=== PATIENT | female | born 1990 | race Caucasian/White ===

== ENCOUNTER 2016-08-17 13:03 | Emergency (ER) | payer OTHER ==
--- NOTE | ~2016-08-17 | CT2 ---
[facility] A Service of [facility] RADIOLOGY TEXT RESULTS PATIENT: KEVIN AGGARWAL LOCATION: SED : 86 UNIT #: [id number] AGE: [address]: Kamar Souza MD SEX: F ORDER DR: [id number] [address] [address] [id number] E MR#: [id number] Acc #: [id number] NAME: KEVIN AGGARWAL : 1990 SEX: F STUDY DATE/TIME: 08/17/2016 14:29 UNIT: SED ROOM: STUDY DESCRIPTION: CT Abd and Pelv W Cont Attending Physician: Kamar Souza M.D. Ordering Physician: Kamar Souza M.D. Primary Care Physician: Raleigh Beck MEDICAL IMAGING REPORT This report is preliminary unless electronic signature is present. EXAM CT scan of the abdomen and pelvis with contrast, 08/17/2016 HISTORY Vomiting and abdominal pain for [address] was performed through the abdomen and pelvis following intravenous contrast administration only as per clinician request. This CT exam was performed with one or more of the following radiation dose reduction techniques: automatic exposure control, adjustment of mA and/or kV according to patient size, and iterative reconstruction. FINDINGS ABDOMEN: The exam is limited by the lack of oral contrast. There is no prior exam for comparison. The liver, spleen, pancreas, gallbladder, biliary tree, adrenal glands and kidneys are normal. PELVIS FINDINGS: The gut, mesenteric and fred structures are normal. There is a 2.5 cm cyst on the right ovary which would be better evaluated with pelvic ultrasound if clinically indicated. There is a small amount of free fluid in the pelvis. The lung bases are normal. IMPRESSION 1. Exam is limited by the lack of oral contrast. 2. A 2.5 cm cystic lesion on the right ovary. This would be better evaluated with pelvic ultrasound if clinically indicated. Small amount of free fluid in the pelvis. [facility] A Service of [facility] RADIOLOGY TEXT RESULTS PATIENT: KEVIN AGGARWAL LOCATION: SED : 86 UNIT #: [id number] AGE: [address]: Kamar Souza MD SEX: F ORDER DR: Dictated by... Antwan Storey M.D. THIS IS AN ELECTRONICALLY VERIFIED REPORT Antwan Storey M.D. at 08/18/2016 10:49 AM MAGUI/ramya TD: 08/17/2016 22:20 JOB #: [id number] MEDICAL IMAGING REPORT
[2016-08-17 13:41] LABS: BASOPHIL# 0.1 X10e3 (0-0.3); BASOPHIL% 0.9 % (0-2.5); EOSINOPHIL# 0.2 X10e3 (0-0.7); EOSINOPHIL% 2.9 % (0.0-7.0); HEMATOCRIT 41.7 % (35.0-45.0); HEMOGLOBIN 13.9 gm/dL (12.0-16.0); LYMPHOCYTE# 1.8 X10e3 (1.0-3.5); MEAN CORPUSCULAR HGB CONC 33.3 g/dL (30-36); MEAN PLATELET VOLUME 8.3 FL (6.5-11.5); MONOCYTE# 0.4 X10e3 (0-1.0); MONOCYTE% 5.1 % (3.0-12.0); NEUTROPHIL# 5.3 X10e3 (1.5-7.1); NEUTROPHIL% 68.1 % (40-75); PLATELET COUNT 193 X10e3 (140-420); RED BLOOD COUNT 4.34 X10e (3.90-5.30); RED CELL DISTRIBUTION WIDTH 13.1 % (11.0-15.5); WHITE BLOOD COUNT 7.8 X10e3 (4.0-10.5)
[2016-08-17 13:42] LABS: DIFF IND NO
[2016-08-17 13:59] LABS: ALKALINE PHOSPHATASE 47 U/L (32-92); ALT (SGPT) 18 U/L (10-40); AMYLASE 24 U/L (0-46); AST (SGOT) 18 U/L (10-42); BILIRUBIN, DIRECT 0.1 mg/dL (0.0-0.2); BILIRUBIN,INDIRECT 0.5 mg/dL (0.0-0.9); BILIRUBIN,TOTAL 0.6 mg/dL (0.2-2.0); BLOOD UREA NITROGEN 14 mg/dL (9-23); CALCIUM SERUM 9.1 mg/dL (8.4-10.2); CARBON DIOXIDE 28 mmol/L (22-31); CHLORIDE 103 mmol/L (100-111); CREATININE SERUM 0.7 mg/dL (0.6-1.4); GLOM FILT RATE Estimated ABOVE60 mL/min (>60); GLUCOSE FASTING 92 mg/dL (70-110); LIPASE 39 U/L (22-51); POTASSIUM 4.2 mmol/L (3.5-5.1); SODIUM 139 mmol/L (135-145)
[2016-08-17 14:07] LABS: URINE SOURCE CLEAN CATCH
[2016-08-17 14:10] LABS: URINE APPEARANCE CLEAR; URINE BILIRUBIN NEG (NEG); URINE BLOOD TRACE-INTACT (NEG); URINE COLOR YELLOW; URINE GLUCOSE NEG (NORM); URINE KETONE NEG (NEG); URINE LEUKOCYTE ESTERASE NEG (NEG); URINE NITRATE NEG (NEG); URINE PROTEIN NEG (NEG); URINE UROBILINOGEN 0.2 MG/DL (NORM)
[2016-08-17 14:11] LABS: MICRO INDICATED? YES
[2016-08-17 14:21] LABS: CULTURE INDICATED? NO; URINE BACTERIA NEG (NEG); URINE MUCUS PRESENT; URINE RBC 0-2 /[HPF] (0-2); URINE SQUAMOUS EPITHELIAL CELL MODERATE /[HPF]; URINE WBC NEG /[HPF] (0-5)
== END 2016-08-17 15:53 | disposition home or self-care (01) ==
LOC: SED 13:03
PROVIDERS: Emergency Medicine
DX: A08.4 Viral intestinal infection, unspecified (principal); N83.201 Unspecified ovarian cyst, right side; Z87.891 Personal history of nicotine dependence; Z98.890 Other specified postprocedural states
CPT/HCPCS: 36415; 74177; 80048; 80076; 81003; 82150; 83690; 84703; 85025; 96361; 96374; 96375; 99284; C9113; J2270; J2405; Q9967